=== PATIENT | male | born 1990 | race Caucasian/White ===

== ENCOUNTER 2020-08-14 22:09 | Inpatient (IN) | payer OTHER, SELFPAY ==
[~2020-08-14] VITALS: Ht 180.3 cm; Wt 102.5 kg
--- NOTE | 2020-08-14 22:17 | NUR ---
Placed in room 7 . Placed on monitor tech, blood pressure machine and pulse oximeter. To gown for exam. Side rails up. Report given to En ZAMORA.
[2020-08-14 22:18] VITALS: BP_SYST 150
--- NOTE | 2020-08-14 22:18 | NUR ---
ER at bedside examining patient.
--- NOTE | 2020-08-14 22:20 | NUR ---
PT BIBA CARE AMBUALNCE BLS FOR NAUSEA/ VOMITING/ ABD PAIN [id number] PT HAS A HISTORY OF DIABETES 2 TAKES MULTIPLE MEDICATIONS TO CONTROL BUT HAS NO TBEEN ABLE TO TAKE ANY OF THEM TODAY. PT HAS NO KNOWN ALLERGIES. PT TACHYCARDIC EKG TO BE PERFORMED. BLOOD SUGAR 262 UPON ARRIVAL PERFORMED BY NURIA LEPE.
--- NOTE | 2020-08-14 22:34 | NUR ---
PT TO RADIOLOGY WITH SCALEMAN VIA WHEELCHAIR
[2020-08-14] MEDS ORDERED: ROSU20TA2 PO (22:37)
[2020-08-14] MEDS ORDERED: EMPA25TA PO (22:37)
[2020-08-14] MEDS ORDERED: PIOG30TA70 PO (22:37)
[2020-08-14] MEDS ORDERED: LISI-209 PO (22:37)
[2020-08-14] MEDS ORDERED: GLIP10TA21 PO (22:37)
--- NOTE | 2020-08-14 22:37 | NUR ---
Medication reconciliation completed with information provided by pt . Any prior medication reconciliation on file was reviewed and corrected.
[2020-08-14 22:53] LABS: HEMOGLOBIN 17.7 g/dL (14.0-18.0); MEAN CORPUSCULAR HEMOGLOBIN 29 pg (27-31); MEAN CORPUSCULAR HGB CONC 32 % (32-36); MEAN CORPUSCULAR VOLUME 90 fL (79.0-98.0); PLATELET COUNT (AUTO) 256 K/uL (130-430); RED CELL DISTRIBUTION WIDTH 13.6 % (9.0-15.0); WHITE BLOOD COUNT (AUTO) 21.9 K/uL (4.8-10.8)
[2020-08-14] MEDS ORDERED: ONDANSETRON HCL 4 MG/2 ML VIAL ONE (23:02)
[2020-08-14] MEDS ORDERED: NACL 0.9% 1,000 ML IV ONE (23:10)
[2020-08-14 23:18] LABS: PROTHROMBIN TIME 10.6 SECS (9.5-12.5)
[2020-08-14 23:24] LABS: CHLORIDE 98 mmol/L (98-107); POTASSIUM 5.1 mmol/L (3.5-5.1); SODIUM SERUM 135 mmol/L (136-145)
[2020-08-14 23:25] LABS: ALANINE AMINOTRANSFERASE 25 U/L (12-78); ANION GAP 27 (5-15); ASPARTATE AMINOTRANSFERASE 13 U/L (10-37); CALCIUM 9.1 mg/dL (8.4-11.0); CREATININE 1.75 mg/dL (0.55-1.30); GFR AFRICAN AMERICAN 58 mL/min (>90); GLUCOSE 258 mg/dL (70-99); TOTAL BILIRUBIN 0.4 mg/dL (0.0-1.0); UREA NITROGEN, BLOOD 19 mg/dL (8-21)
[2020-08-14 23:26] LABS: ACETONE, SERUM LARGE (NEGATIVE); ALBUMIN 4.9 g/dL (3.4-4.8); AMYLASE 34 U/L (0-100); LIPASE 68 U/L (73-393)
[2020-08-14 23:36] LABS: ATYPICAL LYMPHOCYTES % 0 % (0-0); BAND % (MANUAL) 0 % (0-6); BASOPHILS % (MANUAL) 0 % (0-2); EOSINOPHILS % (MANUAL) 0 % (0-7); LYMPHOCYTES % (MANUAL) 9 % (20-46); MONOCYTES % (MANUAL) 17 % (0-11)
[2020-08-14] MEDS ORDERED: INSULIN REGULAR, HUMAN 10 UNITS/0.1 ML INJ IV ONE (23:45)
[2020-08-15] VITALS (21 sets, daily range): BP systolic 98–144
--- NOTE | 2020-08-15 | NUR ---
PT STATES HIS LOWER BACK PAIN HAS NOT GONE AWAY EVEN THOUGH HE IS NO LONGER NAUSEOUS OR VOMITING PT REQUESTS MEDICATION FOR PAIN ED MD GAMEZ AWARE ORDERS TO FOLLOW
[2020-08-15] MEDS ORDERED: NACL 0.9% 1,000 ML IV ONE (00:15)
[2020-08-15] MEDS ORDERED: INSULIN REGULAR, HUMAN 10 UNITS/0.1 ML INJ IVP ONE ×2 (00:15→01:45)
[2020-08-15] MEDS ORDERED: cefTRIAXone 1 GM in D5W 50 ML IV ONE (00:15)
[2020-08-15] MEDS ORDERED: ONDANSETRON HCL 4 MG/2 ML VIAL IVP ONE (00:15)
[2020-08-15 00:29] LABS: BILIRUBIN,URINE 1+ (NEGATIVE); CLARITY/URINE CLEAR (CLEAR); COLOR,URINE YELLOW (YELLOW); GLUCOSE,URINE 3+ (NEGATIVE); KETONES,URINE 3+ (NEGATIVE); LEUKOCYTE ESTERASE ,URINE NEGATIVE (NEGATIVE); NITRITE, URINE NEGATIVE (NEGATIVE); PH,URINE 5.5 (5.0-8.0); PROTEIN URINE 1+ (NEGATIVE); UROBILINOGEN,URINE 0.2 (0.2-1.0)
[2020-08-15] MEDS ORDERED: KETOROLAC TROMETHAMINE 30 MG VIAL IVP ONE (00:30)
--- NOTE | 2020-08-15 00:30 | NUR ---
30MG OF TORADOL ADMINISTERED VIA 20G IV IN PT R AC PER ED MD ORDER PER PT MAR FOR 03/14 NON RADIAITNG LOWER BACK PAIN WILL REASSESS PT FOR PAIN AT 0100HRS
[2020-08-15 00:31] LABS: BLOOD, URINE TRACE (NEGATIVE)
[2020-08-15 00:33] LABS: BACTERIA,URINE FEW /HPF (None Seen); WBC,URINE 0-3 /HPF (0-3)
[2020-08-15] MEDS ORDERED: cefTRIAXone 1 GM VIAL ONE (00:53)
--- NOTE | 2020-08-15 01:00 | NUR ---
LOWER BACK PAIN REDUCED TO 2/10 PAIN SINCE ADMINISTRATION OF MEDICATION PT VITAL SIGNS STABLE WILL CONTINUE TO MONITOR
[2020-08-15] MEDS ORDERED: SODIUM BICARBONATE 8.4% JECT 50 MEQ/50 ML SYRINGE IVP ONE (01:30)
[2020-08-15] MEDS ORDERED: VANCOMYCIN HCL 1,000 MG in NS 250 ML IV ONE (01:45)
[2020-08-15] MEDS ORDERED: INSULIN REGULAR, HUMAN 100 UNITS in NS 99 ML IV ONE ×2 (01:45)
[2020-08-15] MEDS ORDERED: VANCOMYCIN HCL 1000 MG/VIAL IV ONE (01:46)
[2020-08-15] MEDS ORDERED: SODIUM BICARBONATE 8.4% JECT 50 MEQ/50 ML SYRINGE ONE (01:46)
--- NOTE | 2020-08-15 02:20 | NUR ---
ICU ADMIT ORDERS TAKEN BY TELEPHONE/READBACK BY OPERATING ROOM SCHEDULERNOAH BELTRAN FROM ADMITTING MD PARKER ICU CHARGE SAM CALLED FOR BED ORDERS ENTERED INTO PT EMR
[2020-08-15] MEDS: D5NS 1,000 ML IV SCH ×4 (02:51→22:37)
--- NOTE | 2020-08-15 02:55 | NUR ---
BLOOD SUGAR 174 TITRATED INSULIN RATE TO 5 UNITS/HR PER ADMITING MD KEITH GRAFF
--- NOTE | 2020-08-15 03:45 | NUR ---
ADMISSION Pt received from ER via vidalrnuzhat accompanied by ACLS staff. Pt alert oriented to self, time and place. 20ga left forearm started by ER staff. 20ga present RAC also started in ER. IVF and insulin infusing.
--- NOTE | 2020-08-15 04:00 | NUR ---
PT TRASNFERRED TO ICU BED 126A VIA ER NESSA ON TELE MONITOR VITAL SIGNS STABLE BEDSIDE REPORT GIVEN TO CURB WORKER SAM WHO WILL ASSUME CARE OF PT
--- NOTE | 2020-08-15 05:40 | NUR ---
INSULIN DRIP I witnessed Yany ZAMORA decrease insulin drip to 1 unit/hr.
[2020-08-15 05:58] LABS: CALCIUM 8.3 mg/dL (8.4-11.0); CREATININE 1.43 mg/dL (0.55-1.30); POTASSIUM 5.1 mmol/L (3.5-5.1)
[2020-08-15 06:04] LABS: ALBUMIN 3.9 g/dL (3.4-4.8); TOTAL BILIRUBIN 0.4 mg/dL (0.0-1.0)
[2020-08-15] MEDS ORDERED: PIPERACILLIN/TAZOBACTAM 3.375 GM/VIAL (ZOSYN) IV ONE (06:07)
[2020-08-15] MEDS: PIPERACILLIN/TAZO 3.375 GM in NS 50 ML IV SCH ×2 (06:28→12:00)
--- NOTE | 2020-08-15 07:25 | NUR ---
DR KEITH Looney call checking on pt. orders changed. D5 NS 250 ml/hr ordered.
--- NOTE | 2020-08-15 07:30 | NUR ---
Recv report fr Felicia bergman, patient admitted early am for dka, currently patient is on Insulin Drip, patient is awake , alert , oriented x4 , tele shows sr, room air, NPO, voids using the urinal, skin warm to touch, pulses palpable i will continue to monitor the patient.
[2020-08-15 09:14] LABS: CALCIUM 8.3 mg/dL (8.4-11.0); CREATININE 1.5 mg/dL (0.55-1.30); POTASSIUM 5.3 mmol/L (3.5-5.1)
[2020-08-15 09:20] LABS: ALBUMIN 3.8 g/dL (3.4-4.8); TOTAL BILIRUBIN 0.5 mg/dL (0.0-1.0)
[2020-08-15] MEDS: INSULIN REGULAR, HUMAN 100 UNITS in NS 99 ML IV SCH ×6 (09:27→15:39)
[2020-08-15 09:49] LABS: BASOPHILS # (AUTO) 0.1 K/uL (0.0-0.2); BASOPHILS % (AUTO) 0.5 % (0.0-2.0); HEMATOCRIT 47.3 % (36-54); HEMOGLOBIN 15.2 g/dL (14.0-18.0); LYMPHOCYTES # (AUTO) 2.2 K/uL (1.0-5.5); LYMPHOCYTES % (AUTO) 11.3 % (20.5-51.5); MEAN CORPUSCULAR HEMOGLOBIN 29 pg (27-31); MEAN CORPUSCULAR HGB CONC 32 % (32-36); MEAN CORPUSCULAR VOLUME 89 fL (79.0-98.0); MONOCYTES # (AUTO) 1.8 K/uL (0.0-1.0); MONOCYTES % (AUTO) 9.1 % (1.7-9.3); NEUTROPHILS # (AUTO) 15.5 K/uL (1.8-7.7); NEUTROPHILS % (AUTO) 79.1 % (40.0-70.0); PLATELET COUNT (AUTO) 187 K/uL (130-430); WHITE BLOOD COUNT (AUTO) 19.6 K/uL (4.8-10.8)
--- NOTE | 2020-08-15 10:00 | NUR ---
Patient is in bed, remains stable, no complains of pain, bp stable.
--- NOTE | 2020-08-15 12:00 | NUR ---
Patient is in bed , no changed in condition, d5ns infusing at 250 ml/hr, insulin titrated accordingly, i will continue to monitor the patient.
[2020-08-15 13:43] LABS: CALCIUM 8.4 mg/dL (8.4-11.0); CREATININE 1.37 mg/dL (0.55-1.30); POTASSIUM 4.3 mmol/L (3.5-5.1)
[2020-08-15 13:49] LABS: ALBUMIN 3.8 g/dL (3.4-4.8); TOTAL BILIRUBIN 0.4 mg/dL (0.0-1.0)
[2020-08-15] MEDS: VANCOMYCIN HCL 1,000 MG in NS 250 ML IV SCH (15:22)
--- NOTE | 2020-08-15 16:00 | NUR ---
Dr. Looney called and said to changed ivf to d102w 100 ml/hr, reverifed with the pharmacist clifton, he said its fine and just verify with dr Looney if he wants to continue.
[2020-08-15] MEDS ORDERED: D10W 1,000 ML IV SCH (16:30)
[2020-08-15 18:10] LABS: CALCIUM 8.3 mg/dL (8.4-11.0); CREATININE 1.32 mg/dL (0.55-1.30); POTASSIUM 3.8 mmol/L (3.5-5.1)
[2020-08-15 18:24] LABS: ALBUMIN 3.4 g/dL (3.4-4.8); THYROID STIMULATING HORMONE 0.22 uIu/mL (0.36-3.74); TOTAL BILIRUBIN 0.6 mg/dL (0.0-1.0)
--- NOTE | 2020-08-15 21:00 | NUR ---
MD communication Received call from Dr. Looney- updated on patient. Received orders to change maintenance fluids.
[2020-08-16] VITALS (19 sets, daily range): BP systolic 116–154
[2020-08-16] MEDS: D5NS 1,000 ML IV SCH ×5 (00:30→11:55)
[2020-08-16] MEDS: PIPERACILLIN/TAZO 3.375 GM in NS 50 ML IV SCH ×3 (00:39→11:00)
--- NOTE | 2020-08-16 01:00 | NUR ---
RN Rounds Pt resting comfortably in bed, respirations even and unlabored, NAD.
[2020-08-16] MEDS: VANCOMYCIN HCL 1,000 MG in NS 250 ML IV SCH (01:44)
[2020-08-16 02:24] LABS: ALBUMIN 3.4 g/dL (3.4-4.8); CALCIUM 7.9 mg/dL (8.4-11.0); CREATININE 1.21 mg/dL (0.55-1.30); POTASSIUM 3.7 mmol/L (3.5-5.1); TOTAL BILIRUBIN 0.5 mg/dL (0.0-1.0)
--- NOTE | 2020-08-16 03:10 | NUR ---
MD Communication Received call from Dr. Looney- updated on patient. TORB to stop Vanco infusion and continue IVF.
--- NOTE | 2020-08-16 04:30 | NUR ---
RN Rounds Pt swabbed for COVID PCR per order, tolerated well.
[2020-08-16 05:42] LABS: ALBUMIN 3.2 g/dL (3.4-4.8); CALCIUM 7.8 mg/dL (8.4-11.0); CREATININE 1.15 mg/dL (0.55-1.30); POTASSIUM 3.7 mmol/L (3.5-5.1); TOTAL BILIRUBIN 0.4 mg/dL (0.0-1.0)
--- NOTE | 2020-08-16 06:00 | NUR ---
RN Rounds Pt resting comfortably in bed, eyes closed, respirations even and unlabored, NAD.
[2020-08-16 06:02] LABS: BASOPHILS % (AUTO) 0.3 % (0.0-2.0); EOSINOPHILS % (AUTO) 0.3 % (0.0-4.0); HEMATOCRIT 42.1 % (36-54); LYMPHOCYTES # (AUTO) 1.5 K/uL (1.0-5.5); LYMPHOCYTES % (AUTO) 12.5 % (20.5-51.5); MEAN CORPUSCULAR HEMOGLOBIN 29 pg (27-31); MEAN CORPUSCULAR HGB CONC 33 % (32-36); MEAN CORPUSCULAR VOLUME 87 fL (79.0-98.0); MONOCYTES # (AUTO) 1.3 K/uL (0.0-1.0); MONOCYTES % (AUTO) 11.2 % (1.7-9.3); NEUTROPHILS # (AUTO) 9.1 K/uL (1.8-7.7); NEUTROPHILS % (AUTO) 75.7 % (40.0-70.0); PLATELET COUNT (AUTO) 150 K/uL (130-430); RED BLOOD CELL COUNT(AUTO) 4.82 MIL/uL (4.2-6.2); RED CELL DISTRIBUTION WIDTH 13.7 % (9.0-15.0)
--- NOTE | 2020-08-16 06:30 | NUR ---
MD Rounds Dr. Becker at bedside- updated on patient. No new orders.
[2020-08-16] MEDS ORDERED: ONDANSETRON HCL 4 MG/2 ML VIAL IVP PRN (07:00)
[2020-08-16] MEDS ORDERED: ACETAMINOPHEN 325 MG TABLET PO PRN (07:00)
[2020-08-16] MEDS ORDERED: METOCLOPRAMIDE HCL 10 MG/2 ML VIAL IVP PRN (07:00)
--- NOTE | 2020-08-16 07:31 | NUR ---
Opening Note Received plan of care via sbar from endorsing RN.
--- NOTE | 2020-08-16 09:14 | NUR ---
CONSULT ID CONSULTING MD: DR. FU SPOKE TO: RACHEL DIALED: [phone] ORDERED BY: DR. PARKER
[2020-08-16] MEDS ORDERED: INSULIN REGULAR, HUMAN 100 UNITS in NS 99 ML IV PRN ×4 (09:15→10:15)
[2020-08-16 09:46] LABS: CREATININE 1.14 mg/dL (0.55-1.30); POTASSIUM 3.7 mmol/L (3.5-5.1); TOTAL BILIRUBIN 0.4 mg/dL (0.0-1.0)
--- NOTE | 2020-08-16 10:07 | NUR ---
Nutrition Update Mo Scale 17 noted. Pt admitted for DKA. Diet: full liquid BMI: 31.6 kg/m2 RD to follow per nutrition care standards.
--- NOTE | 2020-08-16 10:12 | NUR ---
Paged Dr. Looney and discussed patient CMP. Received order to revert back to previous insulin protocol. Confirmed with pharmacy that the previous insulin protocol is insulin algorithm 1. Call back made.
--- NOTE | 2020-08-16 10:14 | NUR ---
HIGH ALERT NOTE: Called Dr. Looney back at Dr. Pollock identified within the medical roster to verify physician authenticity.
[2020-08-16] MEDS ORDERED: DEXTROSE 50% JECT 50 ML DISP.SYRIN IVP PRN (10:15)
[2020-08-16] MEDS ORDERED: POTASSIUM CHLORIDE 20 MEQ TAB.PRT.SR PO ONE (10:15)
[2020-08-16 13:23] LABS: ALBUMIN 3.1 g/dL (3.4-4.8); CALCIUM 7.9 mg/dL (8.4-11.0); CREATININE 1.08 mg/dL (0.55-1.30); POTASSIUM 3.5 mmol/L (3.5-5.1); TOTAL BILIRUBIN 0.7 mg/dL (0.0-1.0)
[2020-08-16] MEDS ORDERED: cefTRIAXone 1 GM in D5W 50 ML IV SCH (14:00)
--- NOTE | 2020-08-16 14:10 | NUR ---
Dietitian Recommendations * Recommend CCHO, full liquid diet (Glucerna TID comes standard w/ CCHO, full liquid diet; provides an additional 660 kcal/day, 30 gm protein/day) * Consider advance diet if/when medically appropriate (CCHO, soft (low fiber/bland) diet) GERMAINE, RD Please refer to Nutrition Assessment for details. Addendum: 08/16/20 at [address] Amended: Links added.
--- NOTE | 2020-08-16 14:28 | NUR ---
Dietitian Recommendations * Recommend CCHO, full liquid diet (Glucerna TID comes standard w/ CCHO, full liquid diet; provides an additional 660 kcal/day, 30 gm protein/day) * Consider advance diet if/when medically appropriate (CCHO, soft (low fiber/bland) diet) * RD e-mailed pt diabetic-friendly, dairy-free recipes from the [place] [employer] and [employer] as requested by pt GERMAINE, RD Please refer to Nutrition Assessment for details. Addendum: 08/16/20 at [address] Amended: Links added.
--- NOTE | 2020-08-16 14:50 | NUR ---
Called Dr. Looney to report and provide update on patient. Report included CMP. Received orders to DC IV fluid (D5 NS), DC Insulin Drip, DC Q1 accucheck. Start patient on Lantus subQ 10 units now, CMP mag/phos lab at 8pm, have pharmacy does phosphorus replacement for 1.2, advance diet to regular diet CCHO, Q4 accuchecks with regular insulin sliding scale. Addendum: 08/16/20 at 1458 by Renny Jang RN okayed to transfer to [facility].
--- NOTE | 2020-08-16 14:52 | NUR ---
HIGH ALERT NOTE: Called Dr. Looney back and identified within the medical roster to verify physician authenticity.
[2020-08-16] MEDS ORDERED: INSULIN GLARGINE 100 UNITS/ML 10 ML VIAL SUBCUT ONE (15:00)
[2020-08-16] MEDS ORDERED: DEXTROSE 50%-WATER 50 ML DISP.SYRIN IVP PRN (15:45)
[2020-08-16] MEDS ORDERED: GLUCOSE (DEXTROSE) ORAL GEL -Adults PO PRN (15:45)
[2020-08-16] MEDS ORDERED: D5W 1,000 ML IV PRN (15:45)
[2020-08-16] MEDS ORDERED: COMMUNICATION ORDER XX ONE (16:00)
[2020-08-16] MEDS: INSULIN REGULAR, HUMAN 100 UNITS/ML, 10 ML VIAL (humuLIN R) SUBCUT PRN ×2 (16:04→18:43)
[2020-08-16] MEDS ORDERED: NA PHOS 15 MM in NS 250 ML IV ONE (16:15)
--- NOTE | 2020-08-16 16:25 | NUR ---
PT TRANSFERRED Report given to rn at bedside. Patient remained in same room 126A and downgraded to telemetry.
--- NOTE | 2020-08-16 19:05 | NUR ---
OPENING NOTE: PATIENT IS IN BED, WATCHING TV. IV SITES NOTED ON LEFT FOREARM 20 GAUGE AND RIGHT AC 20 GAUGE. NOTED IV ON LEFT FOREARM IS INFILTRATED. IV REMOVED, ICE BAG APPLIED, AND ARM ELEVATED. PATIENT IS ON RA, RESPIRATION IS EVEN AND UNLABORED. NO S/S ACUTE DISTRESS NOTED AT THIS TIME. SAFETY,FALL, COVID ISOLATION PRECAUTIONS IN PLACE. CALL LIGHT IS WITH PATIENT. BED LOCKED, IN LOWEST POSITION, WITH ALARM ON. WILL CONTINUE TO MONITOR PATIENT.
--- NOTE | 2020-08-16 21:15 | NUR ---
RN ROUNDS: PATIENT IS IN BED, WATCHING TV. IV MED IS INFUSING ORDERED RATE. NO SIGNS OF INFILTRATION NOTED AT IV SITE. SAFETY,FALL, AND ISOLATION PRECAUTIONS FOR COVID ARE IN PLACE. CALL LIGHT IS WITH PATIENT. WILL CONTINUE TO MONITOR.
[2020-08-16 23:45] LABS: ALBUMIN 2.9 g/dL (3.4-4.8); CALCIUM 8.1 mg/dL (8.4-11.0); CREATININE 0.94 mg/dL (0.55-1.30); PHOSPHORUS 2.2 mg/dL (2.7-4.5); TOTAL BILIRUBIN 0.3 mg/dL (0.0-1.0)
[2020-08-16 23:56] LABS: POTASSIUM 3.2 mmol/L (3.5-5.1)
[2020-08-17] VITALS: BP_SYST 148
--- NOTE | 2020-08-17 00:15 | NUR ---
MIDNIGHT BS 116 MG/DL. NO INSULIN COVERAGE NEEDED.
--- NOTE | 2020-08-17 03:30 | NUR ---
ACUCHECK DONE, 145 MG/DL. PATIENT IS STABLE. WILL CONTINUE TO MONITOR PATIENT FOR ANY CHANGES.
--- NOTE | 2020-08-17 06:47 | NUR ---
CLOSING NOTE: MORNING ACCUCHEK DONE, 135 MG/DL. IV SITE IS PATENT AND FLUSH WELL. NO SIGN OF INFILTRATION NOTED. BED IS IN LOWEST POSITION,LOCKED, WITH ALARM ON. CALL LIGHT WITH PATIENT. ALL NEEDS MET. WILL ENDORSE PATIENT CARE TO DAY SHIFT RN.
[2020-08-17 07:56] VITALS: BP_SYST 127
[2020-08-17 08:49] LABS: BASOPHILS % (AUTO) 0.5 % (0.0-2.0); EOSINOPHILS # (AUTO) 0.1 K/uL (0.0-0.4); EOSINOPHILS % (AUTO) 1.5 % (0.0-4.0); HEMATOCRIT 42.2 % (36-54); LYMPHOCYTES # (AUTO) 1.7 K/uL (1.0-5.5); LYMPHOCYTES % (AUTO) 24.9 % (20.5-51.5); MEAN CORPUSCULAR HEMOGLOBIN 29 pg (27-31); MEAN CORPUSCULAR HGB CONC 33 % (32-36); MEAN CORPUSCULAR VOLUME 88 fL (79.0-98.0); MONOCYTES # (AUTO) 0.6 K/uL (0.0-1.0); MONOCYTES % (AUTO) 9.2 % (1.7-9.3); NEUTROPHILS # (AUTO) 4.2 K/uL (1.8-7.7); NEUTROPHILS % (AUTO) 63.9 % (40.0-70.0); PLATELET COUNT (AUTO) 148 K/uL (130-430); RED BLOOD CELL COUNT(AUTO) 4.81 MIL/uL (4.2-6.2); RED CELL DISTRIBUTION WIDTH 13.6 % (9.0-15.0); WHITE BLOOD COUNT (AUTO) 6.6 K/uL (4.8-10.8)
[2020-08-17 08:52] LABS: ALBUMIN 3.2 g/dL (3.4-4.8); CALCIUM 8.5 mg/dL (8.4-11.0); CREATININE 0.88 mg/dL (0.55-1.30); POTASSIUM 3.6 mmol/L (3.5-5.1); TOTAL BILIRUBIN 0.4 mg/dL (0.0-1.0)
[2020-08-17 10:23] LABS: FREE T4 (FREE THYROXINE) 1.3 ng/dl (0.8-1.5); THYROID STIMULATING HORMONE 1.37 uIu/mL (0.36-3.74)
--- NOTE | 2020-08-17 10:30 | NUR ---
Seen and examined by Dr. Looney explained plan of care for discharge with new set of medication for DM.
[2020-08-17] MEDS: INSULIN REGULAR, HUMAN 100 UNITS/ML, 10 ML VIAL (humuLIN R) SUBCUT PRN (11:28)
[2020-08-17 11:31] VITALS: BP_SYST 143
[2020-08-17 11:42] VITALS: BP_SYST 143
[2020-08-17] MEDS ORDERED: METF1000 PO (11:46)
[2020-08-17] MEDS ORDERED: INSU100V9 SQ (11:46)
[2020-08-17] MEDS ORDERED: REGULAR INSULIN SUBCUT (11:47)
--- NOTE | 2020-08-17 12:15 | NUR ---
D/C Patient Patient given medication reconciliation form and D/C instructions. Exit Care provided. Patient verbalized understanding. MD discussed with patient the results and treatment provided. Ambulatory with steady gait for discharge to home. Patient in stable condition, ID band removed. IV catheter removed, intact and dressing applied, no active bleeding. Rx given. Patient educated on Insulin administration by return demonstration of patient . All belongings sent with patient.
== END 2020-08-17 13:30 | disposition home or self-care (01) | DRG 637 ==
LOC: SED 22:09 → SIC 08-15 02:16 → STU 08-16 16:20
PROVIDERS: ADMIT Internal Medicine Hospice and Palliative Medicine; ATTEND Internal Medicine Hospice and Palliative Medicine
DX: E11.10 Type 2 diabetes mellitus with ketoacidosis without coma (principal); N17.0 Acute kidney failure with tubular necrosis; E66.9 Obesity, unspecified; I10 Essential (primary) hypertension; Z20.822 Contact with and (suspected) exposure to COVID-19; D72.828 Other elevated white blood cell count; Z79.899 Other long term (current) drug therapy; Z91.19 Patient's noncompliance with other medical treatment and regimen; Z79.84 Long term (current) use of oral hypoglycemic drugs; Z68.31 Body mass index [BMI] 31.0-31.9, adult
CPT/HCPCS: 36415; 36600; 71045; 76376; 80053; 80061; 81000-TC; 82009-TC; 82150-TC; 82803-TC; 82962; 83036; 83605; 83690-TC; 83735-TC; 84100-TC; 84439; 84443-TC; 85007; 85025; 85027; 85610-TC; 85730-TC; 87040-TC; 87081; 93005; 96361; 96365; 96366; 96367; 96375; 99291; 99292; G0378; J0696; J1815; J1885; J2405; J2543; J3370; J7050; J7060; U0003